=== PATIENT | female | born 2000 | race African-American/Black ===

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

== ENCOUNTER 2022-08-15 07:35 | Emergency (ER) | payer MEDICAID ==
[~2022-08-15] VITALS: Ht 157.5 cm; Wt 99.8 kg
[2022-08-15 07:35] VITALS: BP_SYST 118
[~2022-08-15 07:35] MED LIST: ACET325T PO; ACET325T53 PO; IBUP-1619 PO; IBUP-2604 PO
--- NOTE | 2022-08-15 07:35 | NUR ---
BROUGHT BACK TO BED #7 AND TRIAGED. REPORT GIVEN TO VENUS
--- NOTE | 2022-08-15 08:01 | NUR ---
ER Dr. Lau at bedside examining patient.
--- NOTE | 2022-08-15 08:08 | NUR ---
ER at bedside examining patient.
--- NOTE | 2022-08-15 08:10 | NUR ---
Pt bib self from home, ambulated to bed 7. Pt is A&Ox4, able to make needs known. Pt c/o sacral pain for 5 days. Pt rates pain 5/10 and describes pain as sharp and gets worst with movement. Pt denies injury to sacral area. Pt denies N/V. Pt denies fever. Safety measures in place.
[2022-08-15] MEDS ORDERED: CEPH-548 PO (08:14)
[2022-08-15] MEDS ORDERED: TRAM50TA2 PO (08:14)
--- NOTE | 2022-08-15 08:25 | NUR ---
Patient given written and verbal discharge instructions and verbalizes understanding. ER Dr Lau discussed with patient the results and treatment provided. Patient in stable condition. ID arm band removed. Rx of Tramadol and Cephalexin given. Patient educated on pain management and to follow up with PMD. Pain Scale 2/10 Opportunity for questions provided and answered. Medication side effect fact sheet provided.
[2022-08-15 08:30] VITALS: BP_SYST 118
== END 2022-08-15 08:25 | disposition home or self-care (01) ==
LOC: SED 07:35
DX: M54.50 Low back pain, unspecified (principal); M53.3 Sacrococcygeal disorders, not elsewhere classified; Z79.899 Other long term (current) drug therapy
CPT/HCPCS: 99283

== ENCOUNTER 2023-11-08 09:41 | Emergency (ER) | payer MEDICAID ==
[~2023-11-08] VITALS: Ht 157.5 cm; Wt 99.8 kg
[~2023-11-08 09:41] MED LIST changes: +CEPH-548 PO; +TRAM50TA2 PO
[2023-11-08 09:48] VITALS: BP_SYST 132; PULSE 77; RESP 18; TEMP 98.3; O2SAT 99
[2023-11-08] MEDS: KETOROLAC TROMETHAMINE 60 MG/2 ML VIAL IM ONE (10:35)
[2023-11-08 10:41] LABS: BASOPHILS % (AUTO) 0.5 % (0.0-2.0); EOSINOPHILS # (AUTO) 0.1 K/uL (0.0-0.4); EOSINOPHILS % (AUTO) 2.5 % (0.0-4.0); HEMATOCRIT 40.3 % (36-48); HEMOGLOBIN 13.3 g/dL (12.0-16.0); LYMPHOCYTES # (AUTO) 1.9 K/uL (1.0-5.5); LYMPHOCYTES % (AUTO) 38.6 % (20.5-51.5); MEAN CORPUSCULAR HEMOGLOBIN 29 pg (27-31); MEAN CORPUSCULAR HGB CONC 33 % (32-36); MEAN CORPUSCULAR VOLUME 89 fL (79.0-98.0); MONOCYTES # (AUTO) 0.3 K/uL (0.0-1.0); MONOCYTES % (AUTO) 6.4 % (1.7-9.3); NEUTROPHILS # (AUTO) 2.6 K/uL (1.8-7.7); PLATELET COUNT (AUTO) 188 K/uL (130-430); RED BLOOD CELL COUNT(AUTO) 4.55 MIL/uL (4.2-6.2); RED CELL DISTRIBUTION WIDTH 14.3 % (9.0-15.0); WHITE BLOOD COUNT (AUTO) 4.9 K/uL (4.8-10.8)
[2023-11-08 10:44] LABS: ERYTHROCYTE SEDIMENTATION RATE 10 MM/HR (0-20)
[2023-11-08 10:53] LABS: SERUM HCG (QUALITATIVE) NEGATIVE (NEGATIVE)
[2023-11-08 10:54] LABS: PROTHROMBIN TIME 9.9 SECS (9.5-12.5)
[2023-11-08 11:07] LABS: CALCIUM 9.4 mg/dL (8.4-11.0); CREATININE 0.82 mg/dL (0.55-1.30); POTASSIUM 5.1 mmol/L (3.5-5.1); URIC ACID 3.7 mg/dL (2.4-7.0)
[2023-11-08 11:44] VITALS: BP_SYST 132; PULSE 77; RESP 18; TEMP 98.3; O2SAT 99
[2023-11-08] MEDS ORDERED: IBUP-1969 PO (11:44)
[2023-11-08] MEDS ORDERED: HYDR-3917 PO (11:44)
== END 2023-11-08 11:50 | disposition home or self-care (01) ==
LOC: SED 09:41
DX: S93.602A Unspecified sprain of left foot, initial encounter (principal); S93.601A Unspecified sprain of right foot, initial encounter; Z79.899 Other long term (current) drug therapy; Z79.2 Long term (current) use of antibiotics; X58.XXXA Exposure to other specified factors, initial encounter; Y93.89 Activity, other specified; Y92.89 Other specified places as the place of occurrence of the external cause; Y99.8 Other external cause status
CPT/HCPCS: 99284; 80048; 84703; 84550; 85025; 85610; 85651; 85730; 36415; 73620; 81025; 96372; 82397; J1885